=== PATIENT | male | born 1980 | race African-American/Black ===

== ENCOUNTER 2018-09-24 16:13 | Emergency (ER) | payer SELFPAY ==
[~2018-09-24] VITALS: Ht 170.2 cm; Wt 73.8 kg
[2018-09-24 16:54] VITALS: BP 134/86
--- NOTE | 2018-09-24 16:54 | NUR ---
Pt arrives to ED with drainage tube in mouth from recent surgery at [facility] for dental abscess. Pt reports he left AMA, "because of the medical care" Pt unaware of who did the surgery or what the follow up plan was. Pt in no resp distress. Records requested from [facility].
--- NOTE | 2018-09-24 17:22 | NUR ---
Pt states "Im out of here, Im tired and I just want to go home and go to sleep" Pt educated on plan of care and that we have requested information from [facility] and he should stay until we have follow up plans for him
--- NOTE | 2018-09-24 17:27 | NUR ---
Pt continusly requesting to leave, pt encouraged many times to stay for further care. Pt educated on risk of leaving including/up to . Pt left [facility] AMA earlier today with no idea of follow up/abx. Pt does not agree to stay but has not left his room, remains sitting on [facility]
--- NOTE | 2018-09-24 18:01 | NUR ---
Unable to get records still from [facility], [facility] contact to assist
== END 2018-09-24 19:22 | disposition home or self-care (01) ==
LOC: ED 18:06
DX: K04.6 Periapical abscess with sinus (principal); F17.200 Nicotine dependence, unspecified, uncomplicated
CPT/HCPCS: 99283

== ENCOUNTER 2018-12-02 15:14 | Emergency (ER) | payer OTHER ==
[2018-12-02 15:17] VITALS: BP 145/91
[2018-12-02] MEDS ORDERED: PLEASE ENTER PATIENTS WEIGHT MC SCH (15:30)
[2018-12-02] MEDS ORDERED: DIPH,PERTUSS(ACELL),TET VAC/PF 0.5 ML IM-VACC ONE ×2 (15:30→15:46)
[2018-12-02] MEDS ORDERED: LIDOCAINE-MPF 1%, 5ML INFIL ONE (15:30)
[2018-12-02 15:45] LABS: BASOPHILS # (AUTO) 0.06 x10^3/uL (0-0.1); BASOPHILS % (AUTO) 1 % (0-1); EOSINOPHILS # (AUTO) 0.08 x10^3/uL (0-0.4); EOSINOPHILS % (AUTO) 1 % (1-7); LYMPHOCYTES # (AUTO) 1.23 x10^3/uL (1-3.4); LYMPHOCYTES % (AUTO) 19 % (22-44); MD NO; MEAN CORPUSCULAR HEMOGLOBIN 30.2 pg (27.5-34.5); MEAN CORPUSCULAR HGB CONC 33.6 g/dL (33.2-36.2); MEAN CORPUSCULAR VOLUME 89.8 fL (81-97); MEAN PLATELET VOLUME 7.8 fL (7.4-10.4); MONOCYTES # (AUTO) 0.43 x10^3/uL (0.2-0.8); MONOCYTES % (AUTO) 7 % (2-9); NEUTROPHILS # (AUTO) 4.85 x10^3/uL (1.8-6.8); NEUTROPHILS % (AUTO) 73 % (42-75); PLATELET COUNT 282 x10^3/uL (130-400); RED BLOOD COUNT 4.45 x10^6/uL (4.38-5.82); RED CELL DISTRIBUTION WIDTH 13.8 % (9.4-14.8)
[2018-12-02] MEDS ORDERED: LIDOCAINE-MPF 1%, 5ML ONE (15:46)
[2018-12-02 15:48] LABS: ANION GAP 5 mmol/L (5-15); CALCIUM 8.7 mg/dL (8.5-10.1); CHLORIDE 105 mmol/L (98-107); CREATININE 1.14 mg/dL (0.7-1.3)
== END 2018-12-02 16:18 | disposition home or self-care (01) ==
LOC: ED 16:12
DX: S61.231A Puncture wound without foreign body of left index finger without damage to nail, initial encounter (principal); L03.012 Cellulitis of left finger; X58.XXXA Exposure to other specified factors, initial encounter; Y93.89 Activity, other specified; Y92.69 Other specified industrial and construction area as the place of occurrence of the external cause; Y99.0 Civilian activity done for income or pay
CPT/HCPCS: 36415; 80048; 85025; 90471; 90715